=== PATIENT | male | born 1985 | race Caucasian/White ===

== ENCOUNTER 2018-05-30 01:31 | Inpatient (IN) | payer MEDICAID, OTHER ==
[~2018-05-30] VITALS: Ht 170.2 cm; Wt 99.3 kg
[2018-05-30] MEDS ORDERED: METHYLPREDNISOLONE SOD SUCC 125 MG/2 ML VIAL IV STA (02:16)
[2018-05-30] MEDS ORDERED: IPRATROPIUM BROMIDE (0.02%) 0.5MG/2.5ML NEB HHN STA (02:16)
[2018-05-30] MEDS ORDERED: ALBUTEROL (0.083%) 2.5MG/3ML NEB HHN STA (02:16)
[2018-05-30] MEDS ORDERED: MAGNESIUM 2 G PREMIX 50 ML IV ONE (02:30)
[2018-05-30] MEDS ORDERED: NITROGLYCERIN OINT 1GM/INCH UDPKT TD ONE (02:30)
[2018-05-30] MEDS ORDERED: FUROSEMIDE 40MG/4ML VIAL IV ONE (02:30)
[2018-05-30 02:49] LABS: BASOPHILS % 0.2 % (0.0-2.0); EOSINOPHILS % 0.6 % (0.0-5.0); HEMATOCRIT. 49.1 % (42.0-52.0); LYMPHOCYTES % 11.3 % (20.0-50.0); MEAN CORPUSCULAR HEMOGLOBIN 32.1 pg (28.0-32.0); MEAN CORPUSCULAR VOLUME 92.8 fL (80.0-94.0); MONOCYTES % 5.8 % (2.0-8.0); NEUTROPHILS % 82.1 % (40.0-76.0); RED BLOOD CELL COUNT 5.29 mill/uL (4.7-6.1); RED CELL DISTRIBUTION WIDTH 13.2 % (11.6-14.6)
[2018-05-30 02:54] LABS: INR 1.1; PROTHROMBIN TIME 10.7 sec (9.1-11.1)
[2018-05-30] MEDS ORDERED: ONDANSETRON HCL 4MG/2ML INJ IV ONE (03:00)
[2018-05-30] MEDS ORDERED: SODIUM CHLORIDE 0.9% 1000ML BAG (SEPSIS BOLUS) IV ONE (03:15)
[2018-05-30 03:17] LABS: MEAN PLATELET VOLUME 8.5 fl (7.4-10.4); PLATELET 203 x1000/uL (130-400)
[2018-05-30] MEDS ORDERED: PIPERACILLIN/TAZ 3.375G PREMIX 50 ML IV ONE (03:30)
[2018-05-30 03:42] LABS: CHLORIDE 110 mEq/L (98-107)
[2018-05-30 03:46] LABS: ETHANOL BLOOD 50 mg/dL
[2018-05-30 04:39] LABS: CLARITY URINE CLEAR (CLEAR); COLOR URINE YELLOW (YELLOW); KETONES URINE NEGATIVE (NEGATIVE); LEUKOCYTE ESTERASE URINE NEGATIVE (NEGATIVE); NITRITE URINE NEGATIVE (NEGATIVE); OCCULT BLOOD URINE NEGATIVE (NEGATIVE); PH URINE 5.5 (4.5-8.0); PROTEIN URINE NEGATIVE (NEGATIVE); SPECIFIC GRAVITY URINE 1.008 (1.005-1.030); UROBILINOGEN URINE 0.2 E.U./dL (0.2-1.0)
[2018-05-30 04:52] LABS: *AMPHETAMINES SCREEN URINE PRESUMTIVE POSITIVE (NEGATIVE); *BARBITURATES SCREEN URINE NEGATIVE (NEGATIVE); *BENZODIAZEPINES SCREEN URINE NEGATIVE (NEGATIVE); *COCAINE SCREEN URINE NEGATIVE (NEGATIVE); METHADONE URINE SCREEN NEGATIVE (NEGATIVE); OPIATES URINE SCREEN PRESUMTIVE POSITIVE (NEGATIVE)
[2018-05-30 04:53] LABS: CANNABINOID URINE SCREEN PRESUMTIVE POSITIVE (NEGATIVE); PHENCYCLIDINE URINE SCREEN NEGATIVE (NEGATIVE)
[2018-05-30 10:09] LABS: BG BASE EXCESS -2.4 mmol/L (-2.0-2.0); BG BILEVEL POS AIRWAY PRESSURE 14/5; BG CARBOXYHEMOGLOBIN 0.2 % (0.5-1.5); BG DEOXYHEMOGLOBIN 0.5 % (0.0-5.0); BG FRACTION INSPIRED OXYGEN 95; BG HCO3 ACT 24.3 mmol/L (22.0-26.0); BG METHEMOGLOBIN 0.6 % (0.0-1.5); BG OXYGEN SATURATION 99.5 % (92.0-98.5); BG OXYHEMOGLOBIN 98.7 % (94.0-97.0); BG PCO2 48.3 mmHg (35.0-45.0); BG PH 7.319 (7.350-7.450); BG PO2 401.8 mmHg (75.0-100.0); BG SAMPLE SITE RIGHT BRACHIAL; BG TOTAL HEMOGLOBIN 17.1 g/dL (12.0-18.0); BG VENT MODE MASK - BIPAP
[2018-05-30] MEDS: SODIUM CHLORIDE 0.9% 1,000 ML IV SCH ×2 (11:16→23:29)
[2018-05-30 13:45] LABS: BG BASE EXCESS -3.9 mmol/L (-2.0-2.0); BG BILEVEL POS AIRWAY PRESSURE 16/5; BG CARBOXYHEMOGLOBIN 0.3 % (0.5-1.5); BG DEOXYHEMOGLOBIN 2.2 % (0.0-5.0); BG FRACTION INSPIRED OXYGEN 40; BG HCO3 ACT 21.4 mmol/L (22.0-26.0); BG METHEMOGLOBIN 0.4 % (0.0-1.5); BG OXYGEN SATURATION 97.8 % (92.0-98.5); BG OXYHEMOGLOBIN 97.1 % (94.0-97.0); BG PCO2 39.8 mmHg (35.0-45.0); BG PH 7.348 (7.350-7.450); BG PO2 119.1 mmHg (75.0-100.0); BG SAMPLE SITE RIGHT BRACHIAL; BG TOTAL HEMOGLOBIN 15.9 g/dL (12.0-18.0); BG VENT MODE MASK - BIPAP
[2018-05-30 22:30] VITALS: BP 136/84
[2018-05-30 23:00] VITALS: BP 116/78
[2018-05-31] VITALS (11 sets, daily range): BP systolic 117–136; BP diastolic 62–88
[2018-05-31] MEDS ORDERED: GUAIFENESIN 200MG/10ML SUGAR FREE UDC PO PRN (00:30)
[2018-05-31] MEDS ORDERED: ONDANSETRON HCL 4MG/2ML INJ IV PRN (00:30)
[2018-05-31] MEDS ORDERED: ACETAMINOPHEN 325MG TABLET PO PRN (00:30)
[2018-05-31] MEDS ORDERED: HYDROCODONE/ACETAMINOPHEN 5/325MG TABLET PO PRN (00:30)
[2018-05-31] MEDS ORDERED: CLONIDINE 0.1MG TABLET PO PRN (00:30)
[2018-05-31] MEDS ORDERED: LORAZEPAM 2MG/ML CPJ IV PRN (00:30)
[2018-05-31] MEDS ORDERED: IPRATROPIUM/ALBUTEROL 0.5-3(2.5)MG/3ML NEB INH PRN (00:30)
[2018-05-31] MEDS ORDERED: ENOXAPARIN 40MG/0.4ML SYR SUBCUT SCH (00:30)
[2018-05-31] MEDS: SODIUM CHLORIDE 0.9% 1,000 ML IV SCH ×3 (06:29→19:32)
[2018-05-31 07:09] LABS: HEMATOCRIT. 42.2 % (42.0-52.0); HEMOGLOBIN. 14.3 g/dL (14.0-18.0); MEAN CORPUSCULAR HEMOGLOBIN 31.3 pg (28.0-32.0); MEAN CORPUSCULAR VOLUME 92.5 fL (80.0-94.0); MEAN PLATELET VOLUME 7.7 fl (7.4-10.4); PLATELET 194 x1000/uL (130-400); RED BLOOD CELL COUNT 4.56 mill/uL (4.7-6.1); RED CELL DISTRIBUTION WIDTH 13.2 % (11.6-14.6)
[2018-05-31 07:45] LABS: CHLORIDE 109 mEq/L (98-107)
[2018-05-31 07:54] LABS: CREATINE KINASE 254 IU/L (39-308)
[2018-05-31] MEDS: ENOXAPARIN 30MG/0.3ML SYR SUBCUT SCH ×2 (09:20→21:47)
[2018-05-31 10:41] LABS: BG BASE EXCESS 1.4 mmol/L (-2.0-2.0); BG FRACTION INSPIRED OXYGEN 36; BG HCO3 ACT 25.9 mmol/L (22.0-26.0); BG METHEMOGLOBIN 0.2 % (0.0-1.5); BG OXYHEMOGLOBIN 96.8 % (94.0-97.0); BG PCO2 40.4 mmHg (35.0-45.0); BG PH 7.424 (7.350-7.450); BG PO2 104.3 mmHg (75.0-100.0); BG SAMPLE SITE RIGHT BRACHIAL; BG TOTAL HEMOGLOBIN 15.6 g/dL (12.0-18.0); BG VENT MODE NASAL CANNULA
[2018-05-31 14:01] LABS: PLATELET ESTIMATE NORMAL
[2018-05-31] MEDS: CEFTRIAXONE 1 G PREMIX 50 ML IV SCH (14:26)
[2018-06-01] VITALS (9 sets, daily range): BP systolic 105–139; BP diastolic 58–98
[2018-06-01] MEDS: SODIUM CHLORIDE 0.9% 1,000 ML IV SCH ×2 (04:14→12:04)
[2018-06-01 06:35] LABS: BASOPHILS % 0.2 % (0.0-2.0); EOSINOPHILS % 0.5 % (0.0-5.0); HEMOGLOBIN. 14.5 g/dL (14.0-18.0); LYMPHOCYTES % 23.7 % (20.0-50.0); MEAN CORPUSCULAR HEMOGLOBIN 31.9 pg (28.0-32.0); MEAN CORPUSCULAR VOLUME 92.3 fL (80.0-94.0); MEAN PLATELET VOLUME 7.9 fl (7.4-10.4); MONOCYTES % 10.2 % (2.0-8.0); NEUTROPHILS % 65.4 % (40.0-76.0); PLATELET 186 x1000/uL (130-400); RED BLOOD CELL COUNT 4.55 mill/uL (4.7-6.1); RED CELL DISTRIBUTION WIDTH 13.2 % (11.6-14.6)
[2018-06-01 07:02] LABS: CHLORIDE 110 mEq/L (98-107)
[2018-06-01] MEDS: ENOXAPARIN 30MG/0.3ML SYR SUBCUT SCH (08:48)
[2018-06-01] MEDS: CEFTRIAXONE 1 G PREMIX 50 ML IV SCH (14:53)
== END 2018-06-01 16:41 | disposition home or self-care (01) | DRG 812 ==
LOC: ER 01:31 → 3WST 04:29 → EDBEDREQ 04:32 → EDBEDREQSVC 04:32 → EDBEDREQTM 04:32 → ENRESERV 19:44
PROVIDERS: ADMIT Internal Medicine; ATTEND Internal Medicine
PROC: 5A09457 Assistance with Respiratory Ventilation, 24-96 Consecutive Hours, Continuous Positive Airway Pressure (ICD-10-PCS; principal; 2018-05-30)
DX: T40.601A Poisoning by unspecified narcotics, accidental (unintentional), initial encounter (principal); J96.02 Acute respiratory failure with hypercapnia; G92 Toxic encephalopathy; E87.2 Acidosis; F10.129 Alcohol abuse with intoxication, unspecified; D72.829 Elevated white blood cell count, unspecified; F12.90 Cannabis use, unspecified, uncomplicated; F17.200 Nicotine dependence, unspecified, uncomplicated; T40.7X1A Poisoning by cannabis (derivatives), accidental (unintentional), initial encounter; Y92.89 Other specified places as the place of occurrence of the external cause; Z91.013 Allergy to seafood
CPT/HCPCS: 36415; 36600; 71045; 76700; 80048; 80076; 80305; 80320; 82375; 82550; 82805; 83605; 83880; 84484; 93005; 93970; 96365; 96366; 96375; 99291; J0696; J1650; J1940; J2405; J2543; J2930; J3475; J7030; J7611; J7620; G0480